=== PATIENT | female | born 1965 ===

== ENCOUNTER 2017-11-12 14:30 | Emergency (ER) | payer MEDICAID ==
[2017-11-12 14:36] VITALS: BP 114/78; PULSE 81; RESP 18; TEMP 98.3; O2SAT 99
--- NOTE | 2017-11-12 15:20 | C.PDOC ---
History Of Present Illness 52 year old female presents to the ED for evaluation of pain and redness to her left lateral foot which began two days ago. Patient denies fever, chills, sensory changes, known trauma/injuries, calf pain/swelling, chest pain, SOB. Time Seen by Provider: 11/12/17 14:36 Chief Complaint (Nursing): Lower Extremity Problem/Injury History Per: Patient History/Exam Limitations: no limitations Onset/Duration Of Symptoms: Days (2) Current Symptoms Are (Timing): Still Present Severity: Mild Additional History Per: Patient - Ankle/Foot Description Of Injury: denies: Fell, Struck With Object, Struck Against Object, Twisted Past Medical History Reviewed: Historical Data, Nursing Documentation, Vital Signs Vital Signs: Last Vital Signs Temp 98.3 F 11/12/17 14:34 Pulse 81 11/12/17 14:34 Resp 18 11/12/17 14:34 BP 114/78 11/12/17 14:34 Pulse Ox 99 11/12/17 18:28 - Medical History PMH: Anxiety, Asthma, Back Problems, HTN, Hyperthyroidism, Hypothyroidism Surgical History: No Surg Hx Family History: States: No Known Family Hx - Social History Hx Tobacco Use: Yes Hx Alcohol Use: No Hx Substance Use: No - Immunization History Hx Tetanus Toxoid Vaccination: No Hx Influenza Vaccination: No Hx Pneumococcal Vaccination: No Review Of Systems Constitutional: Negative for: Fever, Chills Cardiovascular: Negative for: Chest Pain, Palpitations Respiratory: Negative for: Shortness of Breath Musculoskeletal: Positive for: Foot Pain (left, lateral ) Skin: Positive for: Other (left foot redness ). Negative for: Rash Neurological: Negative for: Weakness, Numbness Physical Exam - Physical Exam Appears: Well, Non-toxic, No Acute Distress Skin: Warm, Dry, Other (1cm area of erythema to lateral aspect of left foot. no fluctuance or induration ) Head: Atraumatic, Normacephalic Eye(s): bilateral: Normal Inspection Oral Mucosa: Moist Neck: Supple Cardiovascular: Rhythm Regular Respiratory: Normal Breath Sounds, No Rales, No Rhonchi, No Wheezing Extremity: Normal ROM (left foot digits, left ankle ), Tenderness (left lateral foot ), No Calf Tenderness, Capillary Refill (< 2 sec all digits ), No Deformity , No Swelling Pulses: Left Dorsalis Pedis: Normal, Right Dorsalis Pedis: Normal Neurological/Psych: Oriented x3, Normal Sensation Gait: Steady ED Course And Treatment O2 Sat by Pulse Oximetry: 99 (on RA) Pulse Ox Interpretation: Normal - Other Rad left foot XR X-Ray: Viewed By Me, Read By Radiologist Interpretation: PROCEDURE: Left Foot Radiographs. HISTORY: LEFT FOOT PAIN, R/ O FX. COMPARISON: None. FINDINGS: BONES: No acute fracture. Prominent navicular with accessory ossicle. JOINTS: Normal. SOFT TISSUES: Normal. OTHER FINDINGS: None. IMPRESSION: No demonstrated fracture dislocation. Progress Note: Xray of left foot ordered and reviewed. Patient given PO Naprosyn, Bactrim and Keflex. Suspect mild foot cellulitis. Xrays neg for acute bony injury. Patient given Rxs for antiboitics and pain medication, and was instructed to follow up with podiatry clinic within 1 week if symptoms persist, or to return to ED if symptoms worsen. Reevaluation Time: 15:40 Reassessment Condition: Improved Disposition Counseled Patient/Family Regarding: Studies Performed, Diagnosis, Need For Followup, Rx Given - Disposition Referrals: [facility] [Outside] Podiatry Clinic [Outside] Disposition: HOME/ ROUTINE Disposition Time: 15:40 Condition: STABLE Additional Instructions: FOLLOW UP WITH YOUR DOCTOR/CLINIC IN 1-2 DAYS USE MEDICATIONS DIRECTED RETURN TO EMERGENCY ROOM IF SYMPTOMS WORSEN IF SYMPTOMS CONTINUE, FOLLOW UP WITH [facility] WITHIN 1 WEEK SEGUIMIENTO CON KOENIG MDICO / CLNICA EN 1-2 LUNA USE MEDICAMENTOS SEGN LO INDICADO REGRESE AL AMBER DE EMERGENCIA SI LOS SNTOMAS EMPEORAN SI LOS SNTOMAS CONTINAN, SIGA CON [facility] DENTRO DE 1 SEMANA Prescriptions: Cephalexin [Keflex] 500 mg PO BID #14 capsule Naproxen 375 mg PO BID PRN #20 tablet PRN Reason: pain Sulfamethoxazole/Trimethoprim [Bactrim DS 800 mg-160 mg] 1 tab PO BID #14 tab Instructions: Cellulitis (Skin Infection), Adult (DC) Forms: [facility] (Portuguese) Print Language: DANISH - POA Present On Arrival: None - Clinical Impression Clinical Impression: Cellulitis of left foot - Scribe Statement The provider has reviewed the documentation as recorded by the Scribe (Olimpia Barajas) Provider Attestation: All medical record entries made by the Scribe were at my direction and personally dictated by me. I have reviewed the chart and agree that the record accurately reflects my personal performance of the history, physical exam, medical decision making, and the department course for this patient. I have also personally directed, reviewed, and agree with the discharge instructions and disposition.
[2017-11-12] MEDS: Naproxen 550 mg Tab PO STA (15:26)
[2017-11-12] MEDS: Tmp-Smz 800 mg-160 mg DS Tab PO STA (15:26)
[2017-11-12] MEDS ORDERED: Tmp-Smz 800 mg-160 mg DS Tab ONE (15:27)
[2017-11-12] MEDS ORDERED: Naproxen 550 mg Tab PO ONE (15:27)
--- NOTE | 2017-11-12 15:43 | RAD ---
Date of service: 11/12/2017 PROCEDURE: Left Foot Radiographs. HISTORY: LEFT FOOT PAIN, R/O FX COMPARISON: None. FINDINGS: BONES: No acute fracture. Prominent navicular with accessory ossicle. JOINTS: Normal. SOFT TISSUES: Normal. OTHER FINDINGS: None. IMPRESSION: No demonstrated fracture dislocation.
== END 2017-11-12 15:46 | disposition home or self-care (01) ==
LOC: C.ER 14:30
DX: L03.116 Cellulitis of left lower limb (principal)

== ENCOUNTER 2018-04-09 14:04 | Emergency (ER) | payer MEDICAID ==
--- NOTE | 2018-04-09 15:14 | C.PDOC ---
History Of Present Illness 53 year old female presents to the emergency department with complaints of back pain. Patient states that she found a bedbug bite on her back, and lifted her bed to look for a possible bedbug and injured her back in the process. Patient also reports having bite wounds to the back which were bleeding, but symptoms were relieved after using lotion. Patient states that she did not use Motrin for pain because it upsets her stomach. She denies urinary symptoms, difficulty ambulating, bowel/bladder dysfunction, paresthesia or weakness of the legs, nausea, vomiting, and diarrhea. Time Seen by Provider: 04/09/18 14:24 Chief Complaint (Nursing): Back Pain History Per: Patient History/Exam Limitations: no limitations Onset/Duration Of Symptoms: Hrs Current Symptoms Are (Timing): Still Present Quality Of Discomfort: "Pain" Associated Symptoms: denies: Incontinence, New Weakness, New Numbness Past Medical History Reviewed: Historical Data, Nursing Documentation, Vital Signs Vital Signs: Last Vital Signs Temp 98.3 F 04/09/18 14:16 Pulse 75 04/09/18 14:16 Resp 18 04/09/18 14:16 BP 93/62 L 04/09/18 14:16 Pulse Ox 97 04/09/18 14:16 - Medical History PMH: Anxiety, Asthma, Back Problems, HTN, Hypercholesterolemia, Hyperthyroidism, Hypothyroidism Denies: Diabetes, Hepatitis, HIV, Seizures, Sexually Transmitted Disease Surgical History: No Surg Hx Denies: Appendectomy Family History: States: Unknown Family Hx - Social History Hx Tobacco Use: Yes Hx Alcohol Use: No Hx Substance Use: No - Immunization History Hx Tetanus Toxoid Vaccination: No Hx Influenza Vaccination: No Hx Pneumococcal Vaccination: No Review Of Systems Except As Marked, All Systems Reviewed And Found Negative. Gastrointestinal: Negative for: Nausea, Vomiting, Diarrhea Genitourinary: Negative for: Dysuria, Frequency Musculoskeletal: Positive for: Back Pain Neurological: Negative for: Weakness, Numbness Physical Exam - Physical Exam Appears: Well, Non-toxic, No Acute Distress Skin: Warm, Dry, Other (three scabbed-over lesions scattered aroound the back. No pustules, no vesicles, no excoriation, no erythema, no streaking.) Head: Atraumatic, Normacephalic Eye(s): bilateral: Normal Inspection, PERRL, EOMI Neck: Normal, Supple Chest: Symmetrical, No Tenderness Back: No Vertebral Tenderness, Paraspinal Tenderness (tenderness to the right paraspinal musculature. ) Extremity: Normal ROM Neurological/Psych: Oriented x3, Normal Speech, Normal Cognition ED Course And Treatment O2 Sat by Pulse Oximetry: 97 (RA) Pulse Ox Interpretation: Normal Medical Decision Making Medical Decision Making: Plan: Toradol 60mg IM POC Urine Patient was asking for a shot, and was given Toradol. Patient also given Hydrocortisone cream for the bug bites. Disposition Counseled Patient/Family Regarding: Studies Performed, Diagnosis, Need For Followup - Disposition Referrals: Bradford Ravi PA [Advanced Practice Nurse] - Disposition: HOME/ ROUTINE Disposition Time: 15:11 Condition: GOOD Prescriptions: Hydrocortisone 1% Cream [Cortizone 1% Cream] 1 applic TP TID #1 tube Naproxen [Naprosyn] 500 mg PO BID #30 tablet Instructions: Lumbar Muscle Strain (DC), Insect Bites and Stings (DC), Bedbugs Forms: [facility] (Hungarian), General Discharge Instructions - POA Present On Arrival: None - Clinical Impression Clinical Impression: Lumbar strain, Insect bites - Scribe Statement The provider has reviewed the documentation as recorded by the Scribe (Gab Brewer) Provider Attestation: All medical record entries made by the Scribe were at my direction and personally dictated by me. I have reviewed the chart and agree that the record accurately reflects my personal performance of the history, physical exam, medical decision making, and the department course for this patient. I have also personally directed, reviewed, and agree with the discharge instructions and disposition.
[2018-04-09 15:21] VITALS: BP 93/61; PULSE 59; RESP 16; TEMP 98.6
[2018-04-09 16:21] VITALS: O2SAT 97
== END 2018-04-09 15:29 | disposition home or self-care (01) ==
LOC: C.ER 14:04
DX: S39.012A Strain of muscle, fascia and tendon of lower back, initial encounter (principal); X50.9XXA Other and unspecified overexertion or strenuous movements or postures, initial encounter; S30.860A Insect bite (nonvenomous) of lower back and pelvis, initial encounter; W57.XXXA Bitten or stung by nonvenomous insect and other nonvenomous arthropods, initial encounter; E78.00 Pure hypercholesterolemia, unspecified; I10 Essential (primary) hypertension; Z72.0 Tobacco use
CPT/HCPCS: 96372; 99283; J1885

== ENCOUNTER 2018-07-25 13:41 | Emergency (ER) | payer MEDICAID ==
[2018-07-25 13:49] VITALS: BP 123/85; PULSE 77; RESP 18; TEMP 98.2; O2SAT 97
[2018-07-25] MEDS ORDERED: Benzocaine/Menthol (Cepacol) Lozenge MT ONE (14:00)
[2018-07-25] MEDS ORDERED: Dexamethasone 10 MG in Sodium Chloride 0.9% 50 ML IM ONE (14:01)
--- NOTE | 2018-07-25 14:03 | C.PDOC ---
History Of Present Illness 53 y/o female pt with hx of asthma and hyperthyroidism presents to the ER c/o cold, coughing with sputum, headache, sore throat and loss of voice. Pt reports she does not smoke but has second hand smoke from her boyfriend. + sick contact from boyfriend. Pt denies fever, vomiting and ear pain. Time Seen by Provider: 07/25/18 13:50 Chief Complaint (Nursing): ENT Problem History Per: Patient History/Exam Limitations: no limitations Onset/Duration Of Symptoms: Days (x1) Current Symptoms Are (Timing): Still Present Past Medical History Reviewed: Historical Data, Nursing Documentation, Vital Signs Vital Signs: Last Vital Signs Temp 98.2 F 07/25/18 13:47 Pulse 77 07/25/18 13:47 Resp 18 07/25/18 13:47 BP 123/85 07/25/18 13:47 Pulse Ox 97 07/25/18 13:47 - Medical History PMH: Anxiety, Asthma, Back Problems, HTN, Hypercholesterolemia, Hyperthyroidism, Hypothyroidism Family History: States: Unknown Family Hx - Social History Hx Tobacco Use: Yes Hx Alcohol Use: No Hx Substance Use: No - Immunization History Hx Tetanus Toxoid Vaccination: No Hx Influenza Vaccination: No Hx Pneumococcal Vaccination: No Review Of Systems Except As Marked, All Systems Reviewed And Found Negative. Constitutional: Positive for: Other (cold ). Negative for: Fever ENT: Positive for: Throat Pain, Other (loss of voice ). Negative for: Ear Pain Respiratory: Positive for: Cough, Sputum (white) Gastrointestinal: Negative for: Vomiting Neurological: Positive for: Headache Physical Exam - Physical Exam Appears: Non-toxic, No Acute Distress Skin: Warm, Dry Head: Normacephalic Eye(s): bilateral: Normal Inspection Ear(s): Bilateral: Normal Nose: Normal Oral Mucosa: Moist Throat: Normal, No Erythema, No Exudate Neck: Normal ROM, Supple Chest: Symmetrical Cardiovascular: Rhythm Regular Respiratory: Normal Breath Sounds Back: No CVA Tenderness Extremity: Normal ROM (x4) Neurological/Psych: Oriented x3, Normal Speech ED Course And Treatment O2 Sat by Pulse Oximetry: 97 (RA) Pulse Ox Interpretation: Normal Medical Decision Making Medical Decision Making: Impression: laryngitis Plans: -- neck soft tissue xr -- decadron -- cepacol Disposition - Disposition Referrals: [facility] [place] [facility] [Outside] [facility] [place] [Outside] Disposition: HOME/ ROUTINE Disposition Time: 16:05 Condition: GOOD Additional Instructions: Take cepacol for sore throat and take tylenol for pain. Prescriptions: Benzocaine/Menthol [Cepacol Sore Throat] 1 monty MM Q2 #10 monty Instructions: Laryngitis (DC) Forms: [facility] (Icelandic) - Clinical Impression Clinical Impression: Laryngitis - Scribe Statement The provider has reviewed the documentation as recorded by the Jennifer Soni Do Provider Attestation: All medical record entries made by the Scribe were at my direction and personally dictated by me. I have reviewed the chart and agree that the record accurately reflects my personal performance of the history, physical exam, medic al decision making, and the department course for this patient. I have also personally directed, reviewed, and agree with the discharge instructions and disposition.
--- NOTE | 2018-07-25 14:36 | RAD ---
Date of service: 07/25/2018 HISTORY: Sore throat COMPARISON: No comparison available. TECHNIQUE: 2 views obtained. FINDINGS: The upper airway is patent. No evidence of prevertebral soft tissue swelling. Thickening of the naso and oral pharynx noted. The possibility of infection cannot be excluded. Moderate degenerative changes noted more prominent at C5-C6. IMPRESSION: Thickening of the naso-oropharynx. Correlate clinically for pharyngeal infection. Moderate degenerative changes more prominent at C5-C6
== END 2018-07-25 16:05 | disposition home or self-care (01) ==
LOC: C.ER 13:41
DX: J04.0 Acute laryngitis (principal)
CPT/HCPCS: 70360; 87070; 87430; 96372; 99283; J1100

== ENCOUNTER 2018-09-07 16:50 | Emergency (ER) | payer MEDICAID ==
[2018-09-07 17:31] VITALS: BMI 25.7
[2018-09-07 17:39] VITALS: BP 124/88; PULSE 69; RESP 17; TEMP 98.6; O2SAT 100
--- NOTE | 2018-09-07 17:42 | C.PDOC ---
History Of Present Illness 53 year old female with a history of anxiety and depression presents to the emergency department with complaints of itching and not being able to sleep. Patient states that her son lives at a alf, and he stayed over recently and now she has bedbugs. Patient denies fever, chills, or other complaints. Time Seen by Provider: 09/07/18 17:35 Chief Complaint (Nursing): Abnormal Skin Integrity History Per: Patient History/Exam Limitations: no limitations Onset/Duration Of Symptoms: Days (1) Current Symptoms Are (Timing): Still Present Past Medical History Reviewed: Historical Data, Nursing Documentation, Vital Signs Vital Signs: Last Vital Signs Temp 98.6 F 09/07/18 17:32 Pulse 69 09/07/18 17:32 Resp 17 09/07/18 17:32 BP 124/88 09/07/18 17:32 Pulse Ox 100 09/07/18 17:32 Primary Care Provider: FAMILY PROVIDER,NO - Medical History PMH: Anxiety, Asthma, Back Problems, HTN, Hypercholesterolemia, Hyperthyroidism, Hypothyroidism Denies: Diabetes, Hepatitis, HIV, Seizures, Sexually Transmitted Disease Surgical History: No Surg Hx Denies: Appendectomy Family History: States: No Known Family Hx - Social History Hx Tobacco Use: Yes Hx Alcohol Use: No Hx Substance Use: No - Immunization History Hx Tetanus Toxoid Vaccination: No Hx Influenza Vaccination: Yes (2018) Hx Pneumococcal Vaccination: No Review Of Systems Except As Marked, All Systems Reviewed And Found Negative. Constitutional: Negative for: Fever, Chills Cardiovascular: Negative for: Chest Pain, Palpitations Respiratory: Negative for: Cough, Shortness of Breath Gastrointestinal: Negative for: Nausea, Vomiting, Abdominal Pain, Diarrhea Physical Exam - Physical Exam Appears: Non-toxic, In Acute Distress (anxious, tremulous) Skin: Warm, Dry, Other (excoriation to back with some small insect bites) Head: Atraumatic, Normacephalic Eye(s): bilateral: Normal Inspection Neck: Normal, Supple Neurological/Psych: Oriented x3, Normal Speech, Normal Cognition ED Course And Treatment O2 Sat by Pulse Oximetry: 100 (RA) Pulse Ox Interpretation: Normal Medical Decision Making Medical Decision Making: Patient given atarax for itching and told to f/u with psychiatrist. Disposition - Disposition Disposition: HOME/ ROUTINE Disposition Time: 17:40 Condition: STABLE Prescriptions: hydrOXYzine HCl [Atarax] 50 mg PO BID #20 tab Instructions: Insect Bites and Stings (DC) Forms: [facility] (Korean), General Discharge Instructions - POA Present On Arrival: None - Clinical Impression Clinical Impression: Anxiety, Bedbug bite - Scribe Statement The provider has reviewed the documentation as recorded by the Scribe (Gab Brewer) Provider Attestation: All medical record entries made by the Scribe were at my direction and personally dictated by me. I have reviewed the chart and agree that the record accurately reflects my personal performance of the history, physical exam, medical decision making, and the department course for this patient. I have also personally directed, reviewed, and agree with the discharge instructions and disposition.
== END 2018-09-07 17:48 | disposition home or self-care (01) ==
LOC: C.ER 16:50
DX: F41.9 Anxiety disorder, unspecified (principal); S20.469A Insect bite (nonvenomous) of unspecified back wall of thorax, initial encounter; W57.XXXA Bitten or stung by nonvenomous insect and other nonvenomous arthropods, initial encounter